=== PATIENT | male | born 1945 ===

== ENCOUNTER 2018-01-27 09:25 | Outpatient (RCR) | payer OTHER | END 2018-02-09 | disposition home or self-care (01) | LOC: PTY 09:25 | DX: Z96.641 Presence of right artificial hip joint (principal) ==

== ENCOUNTER 2018-02-10 13:30 | Outpatient (RCR) | payer OTHER | END 2018-03-12 | disposition home or self-care (01) | LOC: PTY 13:30 | DX: M16.11 Unilateral primary osteoarthritis, right hip (principal); Z96.641 Presence of right artificial hip joint; I10 Essential (primary) hypertension; F41.9 Anxiety disorder, unspecified; Z90.49 Acquired absence of other specified parts of digestive tract ==

== ENCOUNTER 2018-03-13 09:54 | Outpatient (RCR) | payer OTHER | END 2018-04-11 | disposition home or self-care (01) | LOC: PTY 09:54 | DX: Z47.1 Aftercare following joint replacement surgery (principal); Z96.641 Presence of right artificial hip joint ==